=== PATIENT | male | born 2000 | race Hispanic/Latino ===

== ENCOUNTER 2025-01-18 13:59 | Emergency (ER) | payer OTHER ==
[~2025-01-18] VITALS: Ht 160 cm; Wt 57.6 kg
[2025-01-18] MEDS ORDERED: BENA25CA4 PO (14:18)
[2025-01-18 17:05] VITALS: BP 120/77; TEMP 97.3; O2SAT 96
== END 2025-01-18 17:07 | disposition home or self-care (01) ==
LOC: M ED 13:59
DX: L50.0 Allergic urticaria (principal); Z79.899 Other long term (current) drug therapy